=== PATIENT | male | born 1960 | race Caucasian/White ===

== ENCOUNTER 2016-12-28 12:01 | Emergency (ER) | payer BC, OTHER ==
[~2016-12-28] VITALS: Ht 182.9 cm; Wt 90.0 kg
[2016-12-28 12:04] VITALS: Ht 182.9 cm; Wt 90.0 kg
--- NOTE | 2016-12-28 12:19 | ERD ---
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 Keys catheter has been placed in the interim since his primary feeding tube come out accidentally. There are no other complaints and the patient is been stable with no fevers or any other abnormalities reported. No vomiting. ROS Unobtainable Physical Exam Physical Exam Const: [] No distress Eyes: Normal Conjunctiva ENT: Normal External Ears, Nose and Mouth. Resp: Clear to auscultation bilaterally Cardio: Regular rate and rhythm, no murmurs Abd: Soft, no apparent tenderness,, non distended. Normal bowel sounds. Left upper abdominal feeding tube site clean dry and intact with Keys catheter in in its place.. Skin: No petechiae or rashes Back: No midline or flank tenderness Ext: No cyanosis, or edema Procedures/MDM Feeding tube replacement. Temporary Keys catheter was removed and a 16 German feeding tube was placed. Discharging back to facility with instructions to follow-up with his doctor in the next couple of days. Feeding tube replacement procedure note: Left mid upper abdomen feeding tube site was cleaned with alcohol. Sterile technique was used to place 16 German feeding tube after testing of the balloon. Slid easily and and balloon was inflated easily with 5 cc of normal saline. The tube was secured in 60 cc of water was injected with ease. This resulted in return of some of the water and gastric contents. Patient had no distress or any part of this procedure. No complications. No bleeding. Departure Diagnosis: Primary Impression: Encounter for feeding tube placement Condition: Stable Patient Instructions: Feeding Tube Replacement Additional Instructions: Call your primary care doctor TOMORROW for an appointment during the next 2-3 days.See the doctor sooner or return here if your condition worsens before your appointment time. SHERI JARQUIN DO Dec 28, 2016 12:19
== END 2016-12-28 12:21 | disposition home or self-care (01) ==
LOC: E/R 12:01
DX: Z43.1 Encounter for attention to gastrostomy (principal)